=== PATIENT | female | born 1975 | race Caucasian/White ===

== ENCOUNTER 2020-01-01 09:52 | Outpatient (CLI) | payer OTHER ==
[~2020-01-01 09:52] MED LIST: TRAM1TAB98 PO
== END 2020-01-01 10:01 | disposition home or self-care (01) ==
LOC: RX STUDY 09:52
PROVIDERS: ATTEND Colon & Rectal Surgery
DX: K57.30 Diverticulosis of large intestine without perforation or abscess without bleeding (principal); N82.3 Fistula of vagina to large intestine

== ENCOUNTER 2020-01-25 09:18 | Day surgery (SDC) | payer OTHER | END 2020-01-25 15:40 | disposition home or self-care (01) | LOC: AMB-ENDOS 09:18 | PROVIDERS: ATTEND Colon & Rectal Surgery | DX: D12.5 Benign neoplasm of sigmoid colon (principal); K64.1 Second degree hemorrhoids ==

== ENCOUNTER 2020-02-15 09:27 | Outpatient (CLI) | payer OTHER | END 2020-02-15 15:00 | disposition home or self-care (01) | LOC: RX STUDY 09:27 | PROVIDERS: ATTEND Colon & Rectal Surgery | DX: N94.89 Other specified conditions associated with female genital organs and menstrual cycle (principal) ==

== ENCOUNTER 2021-10-08 21:43 | Emergency (ER) | payer OTHER ==
[~2021-10-08] VITALS: Ht 167.6 cm; Wt 86.6 kg
[2021-10-08] MEDS ORDERED: PAXIL CR25 MG (21:59)
[2021-10-08] MEDS ORDERED: TOPIRAMATE100 MG (22:00)
[2021-10-08] MEDS ORDERED: PROTONIX40 MG (22:00)
[2021-10-08] MEDS ORDERED: MIRAPEX1 MG (22:00)
[2021-10-09] MEDS ORDERED: ORASEP SPRAY30 ML MM ×2 (01:40→01:42)
[2021-10-09] MEDS ORDERED: ALBUTEROL2.5 MG/3 M IH ×2 (01:40→01:42)
[2021-10-09] MEDS ORDERED: ZITHROMAX500 MG PO ×2 (01:40→01:42)
[2021-10-09] MEDS ORDERED: ZYNCOF 20-400120 ML PO ×2 (01:40→01:42)
== END 2021-10-09 01:52 ==
LOC: ER 21:43
DX: J40 Bronchitis, not specified as acute or chronic (principal); Z20.822 Contact with and (suspected) exposure to COVID-19; Z88.6 Allergy status to analgesic agent; Z91.040 Latex allergy status; Z88.8 Allergy status to other drugs, medicaments and biological substances; Z91.018 Allergy to other foods

== ENCOUNTER 2021-12-04 14:23 | Outpatient (CLI) | payer OTHER ==
[~2021-12-04 14:23] MED LIST changes: +ALBUTEROL2.5 MG/3 M IH; +MIRAPEX1 MG; +ORASEP SPRAY30 ML MM; +PAXIL CR25 MG; +PROTONIX40 MG; +TOPIRAMATE100 MG; +ZITHROMAX500 MG PO; +ZYNCOF 20-400120 ML PO
== END 2021-12-04 14:33 | disposition home or self-care (01) ==
LOC: RAD 14:23
DX: K59.01 Slow transit constipation (principal)

== ENCOUNTER 2022-08-03 06:15 | Day surgery (SDC) | payer OTHER | END 2022-08-03 10:10 | disposition home or self-care (01) | LOC: AMB-ENDOS 06:15 | PROVIDERS: ATTEND Colon & Rectal Surgery | DX: K29.50 Unspecified chronic gastritis without bleeding (principal); B96.81 Helicobacter pylori [H. pylori] as the cause of diseases classified elsewhere; R19.5 Other fecal abnormalities; K44.9 Diaphragmatic hernia without obstruction or gangrene; K57.30 Diverticulosis of large intestine without perforation or abscess without bleeding; K64.8 Other hemorrhoids; N82.3 Fistula of vagina to large intestine; Z88.6 Allergy status to analgesic agent; Z91.040 Latex allergy status; Z20.822 Contact with and (suspected) exposure to COVID-19 ==

== ENCOUNTER 2023-10-13 11:34 | Emergency (ER) | payer OTHER ==
[~2023-10-13] VITALS: Ht 167.6 cm; Wt 83.0 kg
[~2023-10-13 11:34] MED LIST changes: +PEPCID AC20 MG PO
[2023-10-13] MEDS ORDERED: NURTEC ODT75 MG (11:50)
[2023-10-13] MEDS ORDERED: RINGERS SOLUTION,LACTATED 1,000 ML IV STA (13:33)
[2023-10-13] MEDS ORDERED: HYOSCYAMINE SULFATE 0.125 MG TAB.SUBL SL STA (13:33)
[2023-10-13] MEDS ORDERED: MEPERIDINE HCL/PF 25 MG/ML VIAL IM STA (13:34)
[2023-10-13] MEDS ORDERED: PROMETHAZINE HCL 25 MG/ML AMPUL IM STA (13:34)
[2023-10-13] MEDS ORDERED: METOCLOPRAMIDE HCL 5 MG/ML VIAL IM STA (14:17)
[2023-10-13 14:37] LABS: HEMATOCRIT 41.6 % (36.0-45.00); MEAN CELL VOLUME 83.1 fL (80.00-100.00); MEAN CORPUSCULAR HEMOGLOBIN 27.9 pg (27.00-32.0); MEAN CORPUSCULAR HGB CONC 33.6 g/dl (32.0-36.0); PLATELET COUNT 268 K/uL (150-450); RED CELL DISTRIBUTION WIDTH 12.9 % (11.5-14.5)
[2023-10-13 15:19] LABS: ALBUMIN 4.1 gm/dL (3.4-5.0); BILIRUBIN TOTAL 0.44 mg/dL (0.3-1.2); CALCIUM 9.8 mg/dL (8.5-10.1); CREATININE SERUM 0.63 mg/dL (0.55-1.02); GFR 100.86; GLOBULINA 3.9 G/DL (2.4-3.5); POTASSIUM 4.65 mEq/L (3.5-5.1)
[2023-10-13 15:34] LABS: URINE APPEARANCE Cloudy; URINE BILIRRUBIN Negative (NEGATIVE); URINE BLOOD Negative; URINE COLOR Yellow; URINE GLUCOSE Negative (NEGATIVE); URINE LEUKOCYTE Small; URINE NITRATE Negative; URINE PROTEIN Negative (NEGATIVE)
[2023-10-13 15:37] LABS: URINE EPITHELIAL CELLS 90.1 uL (0.0-38.8); URINE WBC 13.9 uL (0.0-23.2)
[2023-10-13 15:54] LABS: URINE BACTERIA > 9821.5 uL (0.0-1933); URINE CAST 1.06 uL (0.0-1.40); URINE KETONE 40 (NEGATIVE); URINE MUCUS MODERATE
[2023-10-13 15:58] LABS: INR 1.08; PROTHROMBIN TIME 11.3 SECONDS (9.0-11.5)
== END 2023-10-13 20:32 | disposition home or self-care (01) ==
LOC: ER 11:35
DX: N82.3 Fistula of vagina to large intestine (principal); N81.6 Rectocele; N39.0 Urinary tract infection, site not specified; K57.30 Diverticulosis of large intestine without perforation or abscess without bleeding; N20.0 Calculus of kidney; Z88.6 Allergy status to analgesic agent; Z91.040 Latex allergy status; Z88.8 Allergy status to other drugs, medicaments and biological substances; Z91.018 Allergy to other foods

== ENCOUNTER 2023-11-08 11:30 | Day surgery (SDC) | payer OTHER ==
[~2023-11-08 11:30] MED LIST changes: +NURTEC ODT75 MG
[2023-11-08] MEDS ORDERED: MIDAZOLAM HCL 2 MG/2 ML VIAL IV ONE (13:00)
[2023-11-08] MEDS ORDERED: DIPHENHYDRAMINE HCL 50 MG/ML VIAL 1ML IV ONE (13:00)
[2023-11-08] MEDS ORDERED: fentaNYL CITRATE 50 MCG/ML AMPUL IV PUSH ONE (13:00)
== END 2023-11-08 14:45 | disposition home or self-care (01) ==
LOC: AMB-ENDOS 11:30
PROVIDERS: ATTEND Colon & Rectal Surgery
DX: K58.9 Irritable bowel syndrome, unspecified (principal); N82.3 Fistula of vagina to large intestine; Z86.010 Personal history of colon polyps; Z88.6 Allergy status to analgesic agent; Z91.02 Food additives allergy status; Z91.040 Latex allergy status

== ENCOUNTER 2024-01-25 10:28 | Outpatient (CLI) | payer OTHER ==
[2024-01-25] MEDS ORDERED: CYMBALTA60 MG PO (15:12)
[2024-01-25] MEDS ORDERED: TOPAMAX50 MG PO (15:13)
[2024-01-25] MEDS ORDERED: NURTEC ODT75 MG PO (15:13)
== END 2024-01-25 10:34 | disposition home or self-care (01) ==
LOC: RAD 10:28
PROVIDERS: ATTEND Colon & Rectal Surgery
DX: N81.6 Rectocele (principal); N85.3 Subinvolution of uterus; K80.43 Calculus of bile duct with acute cholecystitis with obstruction; Z86.0100 Personal history of colon polyps, unspecified

== ENCOUNTER 2024-02-08 07:37 | Inpatient (IN) | payer OTHER ==
[~2024-02-08 07:37] MED LIST changes: +CYMBALTA60 MG PO; +NURTEC ODT75 MG PO; +TOPAMAX50 MG PO
[2024-02-08] MEDS ORDERED: CEFTRIAXONE SODIUM 2,000 MG VIAL IV ONE (15:00)
[2024-02-08] MEDS ORDERED: METRONIDAZOLE/SODIUM CHLORIDE 500 MG/100 ML PIGGYBACK IV ONE ×2 (15:00)
[2024-02-08] MEDS ORDERED: POVIDONE-IODINE 118 ML BOTT TOP ONE (15:00)
[2024-02-08] MEDS ORDERED: HEMOSTATIC MATRIX 1 KIT KIT TOP ONE (15:15)
[2024-02-08] MEDS ORDERED: DIBUCAINE 30 GM TUBE RECTAL ONE (15:15)
[2024-02-08] MEDS ORDERED: BUPIVACAINE HCL 30 ML VIAL IJ ONE (15:15)
[2024-02-08] MEDS ORDERED: LIDOCAINE HCL 1%/EPINEPHRINE 20ML VIAL IJ ONE (15:15)
[2024-02-08] MEDS ORDERED: MORPHINE SULFATE 4 MG/ML CARTRIDGE IV PRN (15:45)
[2024-02-08] MEDS ORDERED: RINGERS SOLUTION,LACTATED 1,000 ML IV SCH (15:45)
[2024-02-08] MEDS ORDERED: DEXTROSE 50 % IN WATER 0.5 G/ML DISP.SYRIN IV PRN (15:45)
[2024-02-08] MEDS ORDERED: ONDANSETRON HCL 2 MG/ML VIAL IV PRN (15:45)
[2024-02-08] MEDS ORDERED: OxyCODONE HCL 5 MG TABLET (ROXICODONE) PO PRN (15:45)
[2024-02-08] MEDS ORDERED: MORPHINE SULFATE 4 MG/ML VIAL IV ONE ×2 (16:00→17:10)
[2024-02-08 16:20] LABS: HEMATOCRIT 36.7 % (36.0-45.00); HEMOGLOBIN 12.3 g/dL (12.0-15.00); MEAN CELL VOLUME 82.1 fL (80.00-100.00); MEAN CORPUSCULAR HEMOGLOBIN 27.7 pg (27.00-32.0); MEAN CORPUSCULAR HGB CONC 33.7 g/dl (32.0-36.0); PLATELET COUNT 214 K/uL (150-450); RED BLOOD COUNT 4.46 M/uL (4.00-6.00); RED CELL DISTRIBUTION WIDTH 13.4 % (11.5-14.5)
[2024-02-08] MEDS ORDERED: GABAPENTIN 300 MG CAPSULE PO SCH (17:00)
[2024-02-08] MEDS ORDERED: CELECOXIB 200 MG CAPSULE PO SCH (17:00)
[2024-02-08] MEDS ORDERED: POLYETHYLENE GLYCOL 3350 17 GM BLIST.PACK PO SCH (17:00)
[2024-02-08] MEDS ORDERED: METOCLOPRAMIDE HCL 5 MG/ML VIAL IV SCH (17:00)
[2024-02-08] MEDS ORDERED: SIMETHICONE 125 MG CAPSULE PO SCH (17:00)
[2024-02-08] MEDS ORDERED: HYOSCYAMINE SULFATE 0.125 MG TAB.SUBL SL SCH (17:00)
[2024-02-08] MEDS ORDERED: LEVALBUTEROL HCL 0.63 MG/3 ML SOLUTION IH SCH (18:00)
[2024-02-08] MEDS ORDERED: ACETAMINOPHEN 500 MG GEL..CAP PO SCH (20:00)
[2024-02-08 20:30] VITALS: BP 111/52; O2SAT 96
[2024-02-08] MEDS ORDERED: TOPAMAX 50 MG PO SCH (21:00)
[2024-02-08] MEDS ORDERED: FAMOTIDINE/PF 20 MG/2 ML VIAL IV PUSH SCH (21:00)
[2024-02-08] MEDS ORDERED: MIRAPEX PO SCH (21:00)
[2024-02-09 00:42] VITALS: BP 113/60; O2SAT 96
[2024-02-09 07:22] LABS: HEMATOCRIT 39.2 % (36.0-45.00); HEMOGLOBIN 13.2 g/dL (12.0-15.00); MEAN CELL VOLUME 82.3 fL (80.00-100.00); MEAN CORPUSCULAR HEMOGLOBIN 27.6 pg (27.00-32.0); MEAN CORPUSCULAR HGB CONC 33.5 g/dl (32.0-36.0); RED BLOOD COUNT 4.77 M/uL (4.00-6.00); RED CELL DISTRIBUTION WIDTH 13.2 % (11.5-14.5)
[2024-02-09 07:54] LABS: PLATELET COUNT 186 K/uL (150-450)
[2024-02-09 08:04] LABS: ALBUMIN 3.4 gm/dL (3.4-5.0); CALCIUM 9.2 mg/dL (8.5-10.1); CREATININE SERUM 0.61 mg/dL (0.55-1.02); GFR 104.68; PHOSPHOROUS 3.8 mg/dL (2.5-4.9); POTASSIUM 4.27 mEq/L (3.5-5.1)
[2024-02-09] MEDS ORDERED: MIRAPEX PO SCH (09:00)
[2024-02-09] MEDS ORDERED: LACTULOSE 20 G/30 ML BLIST.PACK PO SCH (09:00)
[2024-02-09] MEDS ORDERED: TOPAMAX 50 MG PO SCH (09:00)
[2024-02-09] MEDS ORDERED: LACTOBACILLUS ACIDOPHILUS 1 CAP CAP PO SCH (09:00)
[2024-02-09 09:32] VITALS: BP 138/80; O2SAT 100
[2024-02-09] MEDS ORDERED: INTESTINEX680 M1 PO (12:58)
[2024-02-09] MEDS ORDERED: LEVSIN0.125 MG PO (12:58)
[2024-02-09] MEDS ORDERED: NEURONTIN300 MG PO (12:59)
[2024-02-09] MEDS ORDERED: ENOXAPARIN SODIUM 40 MG/0.4 ML SYRINGE SUBCUTANEO SCH (17:00)
[2024-02-10] MEDS ORDERED: ENOXAPARIN SODIUM 40 MG/0.4 ML SYRINGE SUBCUTANEO SCH (09:00)
== END 2024-02-09 16:35 | disposition home or self-care (01) | DRG 349 ==
LOC: CIR.AMB 07:37 → SURH 16:41 → O/R 16:41 → SURH 16:45
PROVIDERS: ADMIT Colon & Rectal Surgery; ATTEND Colon & Rectal Surgery
PROC: 0DUR0JZ Supplement Anal Sphincter with Synthetic Substitute, Open Approach (ICD-10-PCS; 2024-02-08)
PROC: 0DBP7ZZ Excision of Rectum, Via Natural or Artificial Opening (ICD-10-PCS; principal; 2024-02-08 10:45)
DX: N82.3 Fistula of vagina to large intestine (principal); N81.6 Rectocele; Z20.822 Contact with and (suspected) exposure to COVID-19